=== PATIENT | female | born 1950 | race African-American/Black ===

== ENCOUNTER 2019-05-12 09:35 | Emergency (ER) | payer MEDICARE ==
[2015-05-12 16:10] VITALS: BP 155/93
[~2019-05-12] VITALS: Ht 162.6 cm; Wt 81.8 kg
[~2019-05-12 09:35] MED LIST: ASPI81TA50 PO; MECL-75 PO; OLME20TA17 PO; OMEP20TA63 PO; SULF500T PO
--- NOTE | 2019-05-12 10:25 | PHYS DOC ---
Past Medical History Past Medical History: Cancer, Hypertension, IBS, Other Additional Past Medical Histor: paralytic bladder Past Surgical History: Knee Replacement Additional Past Surgical Histo: ileostomy Smoking Status: Never Smoker Alcohol Use: None Drug Use: None Adult General Chief Complaint Chief Complaint: FLU SYMPTOM HPI HPI Patient is a 69 year old female who arrives to ER today with complaints of cough, sore throat, and body aches since Saturday. She states the symptoms started over the last couple days. She has felt chilled at night but otherwise denies fever. Patient denies any history of asthma or underlying pulmonary condition. She does have a history of coronary artery disease. She denies chest pain. Review of Systems Review of Systems Constitutional: Denies fever. Reports chills HENT: Reports nasal congestion and sore throat Respiratory: Reports cough Cardiovascular: Denies chest pain GI: Denies abdominal pain, nausea, vomiting, bloody stools or diarrhea : Denies dysuria or hematuria Musculoskeletal: Reports diffuse body aches Integument: Denies rash or skin lesions Neurologic: Denies headache, focal weakness or sensory changes Endocrine: Denies polyuria or polydipsia All other systems were reviewed and found to be within normal limits, except as documented in this note. Allergies Allergies Allergies Coded Allergies Type Severity Reaction Last Updated Verified metaproterenol Adverse Reaction Severe HALLUCINATIONS, CRYING, TREMORS 05/12/15 Yes Physical Exam Physical Exam Constitutional: Well developed, well nourished, no acute distress, non-toxic appearance. HENT: Normocephalic, atraumatic, bilateral external ears normal, oropharynx moist, no oral exudates, nose normal. Pharyngeal erythema Eyes: PERRLA, EOMI, conjunctiva normal, no discharge. Neck: Normal range of motion, no tenderness, supple, no stridor. Cardiovascular:Heart rate regular rhythm, no murmur Lungs & Thorax: Bilateral breath sounds clear to auscultation Abdomen: Bowel sounds normal, soft, no tenderness, no masses, no pulsatile masses. Skin: Warm, dry, no erythema, no rash. Back: No tenderness, no CVA tenderness. Extremities: No tenderness, no cyanosis, no clubbing, ROM intact, no edema. Neurologic: Alert and oriented X 3, normal motor function, normal sensory function, no focal deficits noted. Psychologic: Affect normal, judgement normal, mood normal. Current Patient Data Vital Signs Vital Signs Date Time Temp Pulse Resp B/P (MAP) Pulse Ox O2 Delivery O2 Flow Rate FiO2 05/12/19 09:57 98.8 116 20 137/84 (101) 98 Room Air 98.8 Lab Values Laboratory Tests Test 05/12/19 10:09 Influenza Type A Antigen Negative (NEGATIVE) Influenza Type B Antigen Negative (NEGATIVE) Group A Streptococcus Rapid Negative (NEGATIVE) EKG EKG [] Radiology/Procedures Radiology/Procedures [] Course & Med Decision Making Course & Med Decision Making Pt is tolerating PO without difficulty. Her flu and strep swabs are negative. Her lungs are clear at this time. Discussed that we cannot rule out Coronavirus at this time, but that since she is stable and going home, they are not recommending testing with the shortage of tests. The treatment would be the same even if she is positive. Rest, Symptomatic treatment and quarantine for 14 days for safety. Discussed with pt reasons to return to ER including increased work of breathing, dehydration or high fevers. Pt appears nontoxic at time of discharge. Dragon Disclaimer Dragon Disclaimer This electronic medical record was generated, in whole or in part, using a voice recognition dictation system. Departure Departure Impression: Primary Impression: Viral syndrome Disposition: 01 HOME, SELF-CARE Condition: STABLE Referrals: BRUNILDA VIGIL MD (PCP) Patient Instructions: Viral Syndrome Additional Instructions: Push fluids and rest. We cannot rule out Coronavirus at this time. If you were to test positive we would treat you the same way. We treat the symptoms and have you quarantine for 14 days. You should return to the ER if you develop any worsening symptoms including increased shortness of breath or dehydration. Scripts Promethazine HCl/Codeine (Prometh-Codein 6.25-10 mg/5 ml) 5 Ml Syrup 5 ML PO PRN Q4-6HRS PRN for cough MDD 30 Milliliter(s), #120 ML 0 Refills Prov: ADITI HERNANDEZ 05/12/19 ADITI HERNANDEZ May 12, 2019 10:25
[2019-05-12 10:45] LABS: INFLUENZA A PATIENT NEGATIVE (NEGATIVE); INFLUENZA B PATIENT NEGATIVE (NEGATIVE)
[2019-05-12] MEDS ORDERED: PROM5SYR2 PO (11:20)
== END 2019-05-12 11:25 | disposition home or self-care (01) ==
LOC: ER 09:35
DX: B34.9 Viral infection, unspecified (principal); I10 Essential (primary) hypertension; K58.9 Irritable bowel syndrome, unspecified; I25.10 Atherosclerotic heart disease of native coronary artery without angina pectoris; Z88.1 Allergy status to other antibiotic agents
CPT/HCPCS: 87070; 87804; 87880; 99283